=== PATIENT | male | born 1995 | race Caucasian/White ===

== ENCOUNTER 2021-01-17 17:57 | Emergency (ER) | payer SELFPAY ==
--- NOTE | 2021-01-17 18:25 | EDM.PDOC ---
<JaneTamanna - Last Filed: 01/17/21 19:24> ED HPI GENERAL MEDICAL PROBLEM - General Chief Complaint: Laceration Stated Complaint: CUT MIDDLE FINGER ON LEFT HAND Time Seen by Provider: 01/17/21 18:15 Source of Information: Reports: Patient History Limitations: Reports: No Limitations - History of Present Illness INITIAL COMMENTS - FREE TEXT/NARRATIVE: pt has a laceration of the middle finger of the left hand. This was wioth a clean knife.he is current with tetanus. He has normal sensation and normal motion Onset: Today, Sudden Duration: Hour(s): Location: Reports: Upper Extremity, Left Associated Symptoms: Reports: No Other Symptoms - Related Data Allergies Allergy/AdvReac Type Severity Reaction Status Date / Time No Known Allergies Allergy Verified 01/17/21 18:11 Home Meds: Home Meds NK [No Known Home Meds] 01/17/21 [History] ED ROS GENERAL - Review of Systems Review Of Systems: See Below Constitutional: Reports: No Symptoms HEENT: Reports: No Symptoms Respiratory: Reports: No Symptoms Endocrine: Reports: No Symptoms GI/Abdominal: Reports: No Symptoms Musculoskeletal: Reports: Other (laceration of middle finger of the left hand. ) Skin: Reports: No Symptoms ED EXAM, SKIN/RASH Text/Narrative:: pt has a laceration 1 inch in length on the mid portion of the left index finger. Exam Limited By: No Limitations General Appearance: Alert Extremities: Other (pt has a 1 inch laceration on the mid portion of the left index finger This is a flap type laceration) Course - Re-Assessments/Exams Free Text/Narrative Re-Assessment/Exam: 01/17/21 19:29 the wound was infiltrated with lidocaine and scrubbed well. This was closed with 5-0 chromic and 5-0 prolene. It was dressed with bacatracin. Departure - Departure Time of Disposition: 19:23 Disposition: Home, Self-Care 01 Condition: Fair Clinical Impression: Laceration - Discharge Information Referrals: PCP,None [Primary Care Provider] - Forms: ED Department Discharge Care Plan Goals: no further ointments, keep dry, suture removal in 7=8days. <Spencer Gonzalez - Last Filed: 01/18/21 07:48> ED HPI GENERAL MEDICAL PROBLEM Left Finger-Middle Pain Score (Numeric/FACES): 3 ED EXAM, SKIN/RASH Exam: See Below Course - Vital Signs Last Recorded V/S: Last Vital Signs Temp 97.3 F 01/17/21 18:09 Pulse 80 01/17/21 18:09 Resp 16 01/17/21 18:09 BP 137/71 01/17/21 18:09 Pulse Ox 100 01/17/21 18:09 - Orders/Labs/Meds Meds: Medications Discontinued Medications Generic Name Dose Route Start Last Admin Trade Name Josiah PRN Reason Stop Dose Admin Bacitracin 1 dose 01/17/21 18:31 01/17/21 18:40 Bacitracin Oint 1 Gm U/D Packet TOP 01/17/21 18:32 1 dose ONETIME ONE Administration Lidocaine HCl 5 ml 01/17/21 18:31 01/17/21 18:40 Lidocaine 1% 5 Ml Sdv INJECT 01/17/21 18:32 5 ml ONETIME ONE Administration Sepsis Event Note (ED) - Evaluation Sepsis Screening Result: No Definite Risk
[2021-01-17] MEDS ORDERED: Bacitracin Oint 1 GM U/D Packet TOP ONE (18:31)
== END 2021-01-17 20:04 | disposition home or self-care (01) ==
LOC: JP.ED 17:57
DX: S61.213A Laceration without foreign body of left middle finger without damage to nail, initial encounter (principal); W26.0XXA Contact with knife, initial encounter
CPT/HCPCS: 12001; 99282-25